=== PATIENT | male | born 1950 | race Caucasian/White ===

== ENCOUNTER 2020-11-05 11:35 | Emergency (ER) | payer OTHER ==
--- OUTSIDE RECORDS SUMMARY | 2020-11-05 11:38 | XMS REPORT | Continuity of Care Document ---
:1950 Author Organization [facility] t Address [address] [place] [address] Care Team Providers Name Role Phone Unavailable Unavailable Unavailable Problems Condition Condition Condition Status Onset Resolution Last Treating Co mments Source Name Details Category Date Date Treatment Clinician Date Acute gout Acute Gout Problem Active 0 [facility] 7-02 da 00:00: Medical 00 Group Osteoarthr Osteoarthr Problem Active [facility] itis of itis of 4-21 da hip Hip 00:00: Medical Group Hypertrigl Hypertrigl Problem Active [facility] yceridemia yceridemia 9-04 da 00:00: Medical 00 Group Gouty Gouty Problem Active [facility] arthropath Arthropath 9-04 da y y 00:00: Medical 00 Group Acute Acute Problem Active [facility] abscess of Abscess of 9-04 da skin Skin 00:00: Medical and/or And/or 00 Group subcutaneo Subcutaneo us tissue us Tissue Cellulitis Cellulitis Problem Active [facility] of foot of Foot 8-28 da 00:00: Medical Group Serum Serum Problem Active [facility] creatinine Creatinine 8-28 da raised Raised 00:00: Medical 00 Group 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 3-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 00:00: Medica l without without 00 Group complicati Complicati on on Mixed Mixed Problem Active [facility] hyperlipid Hyperlipid 3-26 da emia emia 00:00: Medical 00 Group Hypertensi Hypertensi Problem Active [facility] ve ve 3-26 da disorder Disorder 00:00: Medica l 00 Group Coronary Coronary Problem Active [facility] arterioscl Arterioscl 3-26 da erosis erosis 00:00: Medical 00 Group Transient Transient Problem Active [facility] cerebral Cerebral 3 da ischemia Ischemia 00:00: Medica l 00 Group Stented Stented Problem Active [facility] coronary Coronary 05-19 da artery Artery 00:00: Medical 00 Group Allergies, Adverse Reactions, Alerts This patient has no known allergies or adverse reactions. Social History Smoking Status Start Date Stop Date Source Never Smoker [facility] Medications Ordered Filled Start Stop Current Ordering Indication Dosage Frequency Signature Comments Components Source Medication Medication Date Date Medication? Clinician (SIG) Name Name allopurinol allopurinol No allopurino [facility] 300 mg 300 mg l 300 mg da tablet TAKE tablet TAKE tablet Medical 1 TABLET 1 TABLET TAKE 1 Group EVERY DAY EVERY DAY TABLET EVERY DAY clopidogrel clopidogrel No clopidogre [facility] 75 mg 75 mg l 75 mg da tablet TAKE tablet TAKE tablet Medical 1 TABLET 1 TABLET TAKE 1 Group EVERY DAY EVERY DAY TABLET EVERY DAY Depo-Medrol Depo-Medrol No 1mL Depo-Medro [place] 40 mg/mL 40 mg/mL l 40 mg/mL d a suspension suspension suspension Medical for for for Group injection injection injection Take 1 mL Take 1 mL Take 1 mL by by by injection injection injection route. route. route. dexamethaso dexamethaso No 1mL dexamethas [facility] ne sodium ne sodium one sodium da phosphate phosphate phosphate Medical 10 mg/mL 10 mg/mL 10 mg/mL El up injection injection injection solution solution solution Take 1 mL Take 1 mL Take 1 mL by by by injection injection injection route. route. route. enalapril enalapril No enalapril [facility] maleate 10 maleate 10 maleate 10 da mg tablet mg tablet mg tablet Medical TAKE 1 TAKE 1 TAKE 1 Group TABLET TABLET TABLET TWICE DAILY TWICE DAILY TWICE DAILY fenofibrate fenofibrate No fenofibrat [facility] 160 mg 160 mg e 160 mg da tablet TAKE tablet TAKE tablet Medical 1 TABLET 1 TABLET TAKE 1 Group EVERY DAY EVERY DAY TABLET EVERY DAY indomethaci indomethaci No indomethac [facility] n 50 mg n 50 mg in 50 mg da capsule capsule capsule Medica l Take 1 Take 1 Take 1 Group capsule 3 capsule 3 capsule 3 times a day times a day times a by oral by oral day by route. route. oral route. Medrol Medrol No 1dose Q1D Medrol [place] (Ralf) 4 mg (Ralf) 4 mg pk(s) (Ralf) 4 mg da tablets in tablets in tablets in Medical a dose pack a dose pack a dose Group Take 1 dose Take 1 dose pack Take pk every pk every 1 dose pk day by oral day by oral every day route. take route. take by oral exactly as exactly as route. directed in directed in take the packet the packet exactly as for gout for gout directed flare up flare up in the packet for gout flare up meloxicam meloxicam No 1 Q1D meloxicam [facility] 15 mg 15 mg 15 mg da tablet Take tablet Take tablet Medical 1 tablet 1 tablet Take 1 Group every day every day tablet by oral by oral every day route. take route. take by oral daily until daily until route. gout attack gout attack take daily subsides subsides until gout attack subsides metformin metformin No metformin [facility] 500 mg 500 mg 500 mg da tablet tablet tablet Medical Group metformin metformin No metformin [facility] ER 1,000 mg ER 1,000 mg ER 1,000 da 24 hr 24 hr mg 24 hr Medical tablet,exte tablet,exte tablet,ext Group nded nded ended release release release take 2 take 2 take 2 tablets tablets tablets daily daily daily metformin metformin No metformin [facility] ER 500 mg ER 500 mg ER 500 mg da tablet,exte tablet,exte tablet,ext Medical nded nded ended Group release 24 release 24 release 24 hr TAKE 2 hr TAKE 2 hr TAKE 2 TABLETS TABLETS TABLETS EVERY DAY EVERY DAY EVERY DAY metoprolol metoprolol No metoprolol [facility] tartrate 25 tartrate 25 tartrate da mg tablet mg tablet 25 mg Medi dafne TAKE 1 TAKE 1 tablet Group TABLET TABLET TAKE 1 TWICE DAILY TWICE DAILY TABLET TWICE DAILY mupirocin 2 mupirocin 2 No mupirocin [facility] % topical % topical 2 % da ointment ointment topical Medi dafne ointment Group prednisone prednisone No 1 Q1D prednisone [facility] 10 mg 10 mg 10 mg da tablet Take tablet Take tablet Medical 1 tablet 1 tablet Take 1 Group every day every day tablet by oral by oral every day route. take route. take by oral daily for 5 daily for 5 route. days for days for take daily hip pain hip pain for 5 days take with take with for hip meals meals pain take with meals Immunizations Ordered Immunization Filled Immunization Date Status Commen ts Source Name Name influenza, high dose influenza, high dose 2017-11-27 Completed [facility] seasonal seasonal 13:57:00 Medical Group pneumococcal pneumococcal 2014-11-11 Completed [facility] conjugate PCV 13 conjugate PCV 13 00:00:00 Me dical Group pneumococcal pneumococcal 2013-11-16 Completed [facility] polysaccharide PPV23 polysaccharide PPV23 00:00:00 Medical Group Vital Signs Vital Name Observation Time Observation Value Comments Source BP Diastolic 2018-08-17 00:00:00 78 mm[Hg] [facility] Height 2018-08-17 00:00:00 69 [in_i] [facility] BMI (Body Mass 2018-08-17 00:00:00 32.6 kg/m2 [facility] 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 Encounters Start End Encounter Admission Attending Care Care Encounter Source Date/Time Date/Time Type Type Clinicians Facility Department ID 2019-08-26 2019-08-26 [facility] [place] - [id number] [facility] 00:00:00 00:00:00 [place]: [address] [place] [address] , Ph. 2019-06-15 2019-06-15 [facility] [place] - [id number] [facility] 00:00:00 00:00:00 MD [place]: [facility] [address] [place] [address] [place] [address] , Ph. 2018-08-17 2018-08-17 [facility] [place] - [id number] [facility] 00:00:00 00:00:00 MD [place]: [address] [place] [address] , Ph. Results This patient has no known results.
--- NOTE | 2020-11-05 12:54 | RAD REPORT ---
EXAM DESCRIPTION: RAD - Chest Single View - 11/05/2020 12:43 pm CLINICAL HISTORY: Cough;Fever;SOB Chest pain. COMPARISON: No comparisons FINDINGS: Portable technique limits examination quality. Mild bilateral interstitial lung opacities are present likely representing viral infection/bronchitis . The heart is normal in size. No displaced fractures.
[2020-11-05 13:04] LABS: Absolute Lymphocytes (CBC) 0.7 K/uL (0.7-4.9); Basophils % 0.4 % (0-1.3); Hematocrit 39.2 % (39.6-49.0); Lymphocytes % 7.6 % (15.3-44.8); MPV 9.2 fL (7.6-11.3); RBC Red Blood Cell Count 4.63 M/uL (4.33-5.43)
[2020-11-05 13:07] LABS: Protime INR 1.16
[2020-11-05 13:30] LABS: ALT/SGPT 22 U/L (12-78); AST/SGOT 21 U/L (15-37); Albumin 3.2 g/dL (3.4-5.0); Alkaline Phosphatase 61 U/L (45-117); BUN Blood Urea Nitrogen 30 mg/dL (7-18); Bicarbonate 20 mmol/L (21-32); Bilirubin Direct 0.1 mg/dL (0-0.2); Bilirubin Total 0.3 mg/dL (0.2-1.0); Ferritin 179.2 ng/mL (26-388); Glucose Level 138 mg/dL (74-106); Lipase 95 U/L (73-393); Protein, Total 7.3 g/dL (6.4-8.2); Sodium Level 135 mmol/L (136-145); Troponin (Emerg Dept Use Only) < 0.02 ng/mL (0.0-0.045)
[2020-11-05] MEDS ORDERED: ALBUTEROL 2.5 MG/3 ML NEB SOL ONE ×2 (13:30→13:52)
[2020-11-05] MEDS ORDERED: IPRATROPIUM BROM 0.5MG/2.5ML ONE (13:30)
[2020-11-05] MEDS ORDERED: ACETAMINOPHEN 500 MG TAB ONE ×2 (13:33→21:11)
[2020-11-05 13:47] LABS: Blood Morphology Comment NOT SEEN (NOT SEEN); Platelet Estimate ADEQ; White Blood Cell Scan OK (OK)
[2020-11-05 14:54] LABS: SARS-COV-2 RT PCR POSITIVE (NEGATIVE)
[2020-11-05] MEDS ORDERED: NA CHLORIDE 0.9% 250 ML ONE (15:47)
[2020-11-05] MEDS ORDERED: CASIRIVIMAB/IMDEVIMAB 10 ML VIAL ONE (15:47)
--- NOTE | 2020-11-05 16:13 | EDPHYS ---
Physician Documentation [facility] Name: Leandro Donis Age: 70 yrs Sex: Male : 1950 Arrival Date: 11/05/2020 Time: 11:38 Bed 16 Private MD: ED Physician Jakob Hilton HPI: 11/05 12:06 This 70 yrs old Male presents to ER via Ambulatory with complaints of Cough, pm1 Fever. 12:06 The patient or guardian reports cough, Fever, low energy since second Covid vaccine pm1 dosage on 10/26. Onset: The symptoms/episode began/occurred 10 day(s) ago. Severity of symptoms: in the emergency department the symptoms are unchanged. Modifying factors: The symptoms are alleviated by nothing, the symptoms are aggravated by nothing. Associated signs and symptoms: Pertinent positives: fever, Shortness of breath, Pertinent negatives: chest pain, diarrhea, ear ache, sore throat, vomiting. The patient has not experienced similar symptoms in the past. Historical: - Allergies: 11:51 Morphine; vomiting; hb - Immunization history:: Client reports receiving the 2nd dose of the Covid vaccine, Date received: October 26, 2020. - Social history:: Smoking status: Patient denies any tobacco usage or history of. ROS: 12:06 Cardiovascular: Negative for chest pain, palpitations, and edema. pm1 12:06 Abdomen/GI: Negative for abdominal pain, nausea, vomiting, diarrhea, and constipation, Back: Negative for injury and pain, MS/Extremity: Negative for injury and deformity, Skin: Negative for injury, rash, and discoloration, Neuro: Negative for headache, weakness, numbness, tingling, and seizure. 12:06 Constitutional: Positive for fever, malaise, Negative for poor PO intake. 12:06 Respiratory: Positive for cough, shortness of breath, Negative for sputum production. 12:06 All other systems are negative. Exam: 12:06 Constitutional: This is a well developed, well nourished patient who is awake, alert, pm1 and in no acute distress. Head/Face: Normocephalic, atraumatic. 12:06 Skin: Warm, dry with normal turgor. Normal color with no rashes, no lesions, and no evidence of cellulitis. MS/ Extremity: Pulses equal, no cyanosis. Neurovascular intact. Full, normal range of motion. 12:06 ENT: Exam is negative for acute changes, Mouth: no acute changes, Lips: normal, moist, Oral mucosa: normal, pink and intact, moist. 12:06 Cardiovascular: Exam negative for acute changes, Rate: normal, Rhythm: regular, Pulses: no pulse deficits are appreciated, Heart sounds: normal. 12:06 Respiratory: Exam negative for acute changes, respiratory distress, shortness of breath, Breath sounds: are clear throughout. 12:06 Abdomen/GI: Exam negative for acute changes, Inspection: abdomen appears normal, Palpation: abdomen is soft and non-tender, in all quadrants. 12:06 Neuro: Exam negative for acute changes, Orientation: is normal, Mentation: is normal, Motor: is normal, moves all fours. Vital Signs: 11:50 BP 149 / 72; Pulse 90; Resp 24; Temp 97.1(TE); Pulse Ox 97% on R/A; Weight 104.33 kg; hb Height 5 ft. 9 in. (175.26 cm); Pain 3/10; 12:05 BP 149 / 82; Pulse 88; Resp 24; Temp 100.4; Pulse Ox 95% on 2 lpm NC; aj2 13:54 BP 113 / 60; Pulse 92; Resp 24; Temp 99.3; Pulse Ox 95% on 2 lpm NC; aj2 15:04 BP 106 / 61; Pulse 98; Resp 22; Temp 99; Pulse Ox 92% on R/A; aj2 15:09 BP 121 / 71; Pulse 85; Resp 20; Pulse Ox 94% 2 lpm ; aj2 11:50 Body Mass Index 33.96 (104.33 kg, 175.26 cm) hb MDM: 11:47 Patient medically screened. pm1 15:16 Data reviewed: vital signs. Data interpreted: Pulse oximetry: on room air is 94 %. pm1 15:16 Counseling: I had a detailed discussion with the patient and/or guardian regarding: the pm1 historical points, exam findings, and any diagnostic results supporting the discharge/admit diagnosis, lab results, radiology results. 15:16 Special discussion: I discussed with the patient/guardian in detail that at this point pm1 there is no indication for admission to the hospital. It is understood, however, that if the symptoms persist or worsen the patient needs to return immediately for re-evaluation. Currently is not a candidate for admission due to coronavirus. Patient's room air saturation acceptable for discharge. However patient is a candidate for Regeneron and discussed this option with the patient. He would like the administration of Regeneron. 11/05 12:05 Order name: BMP pm11/05 12:05 Order name: Blood Culture Adult (2) pm11/05 12:05 Order name: C-Reactive Protein pm11/05 12:05 Order name: CBC with Diff pm11/05 12:05 Order name: D-Dimer pm11/05 12:05 Order name: Ferritin pm1 11/05 12:05 Order name: LFT's; Complete Time: 13:40 pm1 11/05 12:05 Order name: Lactate; Complete Time: 13:21 pm1 11/05 12:05 Order name: Lipase; Complete Time: 13:40 pm1 11/05 12:05 Order name: PT-INR; Complete Time: 13:19 pm1 11/05 12:05 Order name: Procalcitonin; Complete Time: 13:40 pm1 11/05 12:05 Order name: Ptt, Activated; Complete Time: 13:19 pm1 11/05 12:05 Order name: Strep; Complete Time: 13:40 pm1 11/05 12:05 Order name: Troponin (emerg Dept Use Only); Complete Time: 13:40 pm1 11/05 12:05 Order name: CXR XRAY; Complete Time: 13:11 pm1 11/05 12:06 Order name: Basic Metabolic Panel; Complete Time: 13:40 EDMS 11/05 12:06 Order name: Blood Culture EDMS 11/05 12:06 Order name: C-Reactive Protein; Complete Time: 13:40 EDMS 11/05 12:06 Order name: CBC with Automated Diff; Complete Time: 13:48 EDMS 11/05 12:06 Order name: D-Dimer; Complete Time: 13:19 EDMS 11/05 12:06 Order name: Ferritin; Complete Time: 13:40 EDMS 11/05 13:28 Order name: Throat Culture EDMS 11/05 13:47 Order name: CBC Smear Scan; Complete Time: 13:48 EDMS 11/05 14:55 Order name: COVID-19/FLU A+B; Complete Time: 15:22 EDMS 11/05 12:05 Order name: EKG; Complete Time: 12:06 pm1 11/05 12:05 Order name: Cardiac monitoring; Complete Time: 13:00 pm1 11/05 12:05 Order name: Droplet/Contact Precautions; Complete Time: 13:00 pm1 11/05 12:05 Order name: EKG - Nurse/Tech; Complete Time: 13:00 pm1 11/05 12:05 Order name: IV Start; Complete Time: 13:00 pm1 11/05 12:05 Order name: Labs collected and sent; Complete Time: 13:00 pm1 11/05 12:05 Order name: O2 Per Protocol; Complete Time: 13:00 pm1 11/05 12:05 Order name: O2 Sat Monitoring; Complete Time: 13:01 pm1 11/05 12:05 Order name: Urine Dipstick-Ancillary (obtain specimen) pm1 Administered Medications: 13:15 Drug: Albuterol - atroVENT (ipratropium) (3:1) (2.5 mg - 0.5 mg) 3 ml Route: Nebulizer; aj2 13:15 Drug: Tylenol 1000 mg Route: PO; aj2 16:30 Drug: Benadryl (diphenhydrAMINE) 12.5 mg Route: IVP; Site: left forearm; aj2 17:00 Drug: REGEN-COV Dose Pack 120 mg/mL-120 mg/mL (EUA) 600 mg Route: IV; Rate: calculated aj2 rate; Site: left forearm; Disposition: 19:02 Co-signature as Attending Physician, Jakob Hilton MD I agree with the assessment and rn plan of care. Attestation: The patient's history, exam findings, diagnostics, and a summary of any interventions or procedures was reviewed in detail with Francis Mora NP. Disposition Summary: 11/05/20 16:13 Discharge Ordered Location: Home pm1 Problem: new pm1 Symptoms: have improved pm1 Condition: Stable pm1 Diagnosis - Other coronavirus as the cause of diseases classified elsewhere pm1 Followup: pm1 - With: Emergency Department - When: As needed - Reason: Worsening of condition Followup: pm1 - With: Private Physician - When: 2 - 3 days - Reason: Recheck today's complaints, Continuance of care, Re-evaluation by your physician Discharge Instructions: - Discharge Summary Sheet pm1 - COVID-19 pm1 - COVID-19 Frequently Asked Questions pm1 - 10 Things You Can Do to Manage Your COVID-19 Symptoms at Home - [facility] pm1 - COVID-19: Quarantine vs. Isolation - [facility] pm1 Forms: - Medication Reconciliation Form pm1 - Thank You Letter pm1 - Antibiotic Education pm1 - Prescription Opioid Use pm1 Prescriptions: - Ventolin HFA 90 mcg/actuation Inhalation HFA aerosol inhaler - inhale 2 puff by INHALATION route every 4-6 hours As needed; 1 Inhaler; pm1 Refills: 0, Product Selection Permitted Signatures: Dispatcher [employer] EDMS Jakob Hilton MD MD rn Marinas, Patrick, NP GAMING COMMISSIONER pm1 Mirta Albright RN RN Jaime Carrasco2 Corrections: (The following items were deleted from the chart) 13:16 12:06 Influenza Screen (A \T\ B)+BA.LAB.BRZ ordered. EDMS EDMS 13:16 12:13 CORONAVIRUS+MR.LAB.BRZ ordered. EDMS EDMS
--- NOTE | 2020-11-05 16:13 | ER ---
Nurse's Notes [facility] Name: Leandro Donis Age: 70 yrs Sex: Male : 1950 Arrival Date: 11/05/2020 Time: 11:38 Bed 16 Private MD: Diagnosis: Other coronavirus as the cause of diseases classified elsewhere Presentation: 11/05 11:45 Chief complaint: Chief complaint: Malaise, cough, and intermittent fever since he hb received second COVID vaccine 10/26. TMAX 104. 11:50 Coronavirus screen: Client presents with at least one sign or symptom that may indicate hb coronavirus-19. Standard/surgical mask placed on the client. Provider contacted for isolation considerations. Ebola Screen: No symptoms or risks identified at this time. Initial Sepsis Screen: Does the patient meet any 2 criteria? No. Patient's initial sepsis screen is negative. Does the patient have a suspected source of infection? No. Patient's initial sepsis screen is negative. Risk Assessment: Do you want to hurt yourself or someone else? Patient reports no desire to harm self or others. Onset of symptoms was October 27, 2020. 11:50 Method Of Arrival: Ambulatory hb 11:50 Acuity: DORA 3 hb Historical: - Allergies: 11:51 Morphine; vomiting; hb - Immunization history:: Client reports receiving the 2nd dose of the Covid vaccine, Date received: October 26, 2020. - Social history:: Smoking status: Patient denies any tobacco usage or history of. Screenin:52 Abuse screen: Denies threats or abuse. Denies injuries from another. Nutritional hb screening: No deficits noted. Tuberculosis screening: No symptoms or risk factors identified. Fall Risk None identified. Assessment: 12:05 Pain: Denies pain. aj2 13:57 Reassessment: Patient appears in no apparent distress at this time. Patient is alert, aj2 oriented x 3, equal unlabored respirations, skin warm/dry/pink. Patient denies pain at this time. General: Appears in no apparent distress. comfortable, obese, Behavior is calm, cooperative. 15:04 Reassessment: Patient appears in no apparent distress at this time. Patient is alert, aj2 oriented x 3, equal unlabored respirations, skin warm/dry/pink. 17:07 Reassessment: Patient appears in no apparent distress at this time. Patient is alert, aj2 oriented x 3, equal unlabored respirations, skin warm/dry/pink. Vital Signs: 11:50 BP 149 / 72; Pulse 90; Resp 24; Temp 97.1(TE); Pulse Ox 97% on R/A; Weight 104.33 kg; hb Height 5 ft. 9 in. (175.26 cm); Pain 3/10; 12:05 BP 149 / 82; Pulse 88; Resp 24; Temp 100.4; Pulse Ox 95% on 2 lpm NC; aj2 13:54 BP 113 / 60; Pulse 92; Resp 24; Temp 99.3; Pulse Ox 95% on 2 lpm NC; aj2 15:04 BP 106 / 61; Pulse 98; Resp 22; Temp 99; Pulse Ox 92% on R/A; aj2 15:09 BP 121 / 71; Pulse 85; Resp 20; Pulse Ox 94% 2 lpm ; aj2 11:50 Body Mass Index 33.96 (104.33 kg, 175.26 cm) hb ED Course: 11:38 Patient arrived in ED. rg4 11:41 Francis Mora NP is PHCP. pm1 11:41 Jaokb Hilton MD is Attending Physician. pm1 11:51 Triage completed. hb 11:51 Arm band placed on. hb 11:52 Bed in low position. Call light in reach. hb 12:04 Jaime Crystal is Primary Nurse. aj2 12:05 No apparent distress. aj2 12:05 No provider procedures requiring assistance completed. aj2 12:43 CXR XRAY In Process Unspecified. EDMS 12:59 BMP Sent. aj2 12:59 Blood Culture Adult (2) Sent. aj2 12:59 C-Reactive Protein Sent. aj2 12:59 CBC with Diff Sent. aj2 13:00 D-Dimer Sent. aj2 13:00 Ferritin Sent. aj2 13:01 Lactate Sent. aj2 13:01 Lipase Sent. aj2 13:01 PT-INR Sent. aj2 13:01 Procalcitonin Sent. aj2 13:01 Ptt, Activated Sent. aj2 13:01 Strep Sent. aj2 13:01 Troponin (emerg Dept Use Only) Sent. aj2 13:57 Resting quietly. aj2 13:57 IV is patent, is intact. aj2 15:04 No apparent distress. Resting quietly. aj2 15:04 IV is patent, is intact. aj2 15:09 No apparent distress. Resting quietly. aj2 15:09 IV is patent, is intact. aj2 Administered Medications: 13:15 Drug: Albuterol - atroVENT (ipratropium) (3:1) (2.5 mg - 0.5 mg) 3 ml Route: Nebulizer; aj2 13:15 Drug: Tylenol 1000 mg Route: PO; aj2 16:30 Drug: Benadryl (diphenhydrAMINE) 12.5 mg Route: IVP; Site: left forearm; aj2 17:00 Drug: REGEN-COV Dose Pack 120 mg/mL-120 mg/mL (EUA) 600 mg Route: IV; Rate: calculated [facility] rate; Site: left forearm; Outcome: 16:13 Discharge ordered by MD. pm1 19:00 Patient left the ED. ss Signatures: Dispatcher [employer] EDMS Bonnie Dixon RN RN Francis Mora, SHOPPER MARKETING MANAGER SHOPPER MARKETING MANAGER pm1 Mirta Albright RN RN Ericka Valles rg4 Jaime Crystal aj2 Corrections: (The following items were deleted from the chart) 11:51 11:45 Chief complaint: hb hb 13:16 13:01 Influenza Screen (A \T\ B)+BA.LAB.MIGUELZ drawn and sent. 2 EDMA
[2020-11-05] MEDS ORDERED: DIPHENHYDRAMINE 50 MG/ML VIAL ONE (16:51)
[2020-11-05 19:10] VITALS: TEMP 99
[2020-11-05 19:11] VITALS: BP 121/71; O2SAT 94
== END 2020-11-05 19:00 | disposition home or self-care (01) ==
LOC: ER 11:35
DX: U07.1 COVID-19 (principal); Z88.5 Allergy status to narcotic agent
CPT/HCPCS: 93005; 87040 ×2; 87070; 85025; 80048; 36415; 85610; 85379; 80076; 87081; 83605; 85730; 84484; 82728; 83690; 84145; 0240U; 86140; 71045; 96375; 96374; 99284; J1200; J7050

== ENCOUNTER 2020-11-05 20:25 | Emergency (ER) | payer OTHER ==
--- OUTSIDE RECORDS SUMMARY | 2020-11-05 20:28 | XMS REPORT | Continuity of Care Document ---
:1950 Author Organization [facility] t Address [address] [place] [address] Care Team Providers Name Role Phone Unavailable [...] Start Date Stop Date Source Never Smoker [facility] Medications Ordered Filled Start [...] high dose influenza, high dose 2017-11-27 Completed [facility] seasonal seasonal 13:57:00 Medical Group pneumococcal pneumococcal 2014-11-11 Completed [facility] conjugate PCV 13 conjugate PCV 13 00:00:00 Me dical Group pneumococcal pneumococcal 2013-11-16 Completed [facility] polysaccharide PPV23 polysaccharide PPV23 00:00:00 Medical Group Vital Signs Vital Name Observation Time Observation Value Comments Source BP Diastolic 2018-08-17 00:00:00 78 mm[Hg] [facility] Height 2018-08-17 00:00:00 69 [in_i] [facility] BMI (Body Mass 2018-08-17 00:00:00 32.6 kg/m2 [facility] rn intake Medical Index) Group BP Systolic 2018-08-17 00:00:00 122 mm[Hg] [facility] Body Weight 2018-08-17 00:00:00 3536 [oz_av] [facility] Procedures This patient has no known procedures. Encounters Start End Encounter Admission Attending Care Care Encounter Source Date/Time Date/Time Type Type Clinicians Facility Department ID 2019-08-26 2019-08-26 [facility] [place] - [id number] [facility] 00:00:00 00:00:00 [place]: [address] [place] [address] , Ph. 2019-06-15 2019-06-15 Arian [facility] [place] - [id number] [facility] 00:00:00 00:00:00 MD [place]: [facility] [address] [place] [address] [place] [address] , Ph. 2018-08-17 2018-08-17 [facility] [place] - [id number] [facility] 00:00:00 00:00:00 MD [place]: [address] [place] [address] , Ph. Results This patient has no known results.
--- NOTE | 2020-11-05 21:39 | ER ---
Nurse's Notes [facility] Name: Leandro Donis Age: 70 yrs Sex: Male : 1950 Arrival Date: 11/05/2020 Time: 20:28 Bed 23 Private MD: Diagnosis: Presentation: 11/05 20:37 Chief complaint: Patient states: Pt states he was seen here earlier today for fever, wg SOB, coughing and was diagnoses with COVID. Pt states he is still having difficulty breathing. Pt denies taking anything since he left the ER. Coronavirus screen: cough unrelated to allergies, difficulty breathing, fever, Client presents with at least one sign or symptom that may indicate coronavirus-19. Standard/surgical mask placed on the client. Client reports previous positive COVID test result. Date of collection: November 05, 2020. Ebola Screen: Patient negative for fever greater than or equal to 101.5 degrees Fahrenheit, and additional compatible Ebola Virus Disease symptoms Patient denies exposure to infectious person. Patient denies travel to an Ebola-affected area in the 21 days before illness onset. No symptoms or risks identified at this time. Initial Sepsis Screen: Does the patient meet any 2 criteria? No. Patient's initial sepsis screen is negative. Does the patient have a suspected source of infection? No. Patient's initial sepsis screen is negative. Risk Assessment: Do you want to hurt yourself or someone else? Patient reports no desire to harm self or others. Onset of symptoms was October 26, 2020. Care prior to arrival: None. 20:37 Method Of Arrival: Ambulatory 20:37 Acuity: DORA 4 wg Triage Assessment: 20:42 General: Appears uncomfortable, obese, well groomed, Behavior is calm, cooperative, wg appropriate for age, anxious. Pain: Denies pain. EENT: No deficits noted. Neuro: No deficits noted. Cardiovascular: No deficits noted. Respiratory: Reports shortness of breath cough that is Onset: The symptoms/episode began/occurred several days, the patient has moderate shortness of breath. GI: No deficits noted. : No deficits noted. Derm: No deficits noted. Vital Signs: 20:37 BP 133 / 68; Pulse 120; Resp 26; Temp 101.8; Pulse Ox 96% on R/A; Weight 104.33 kg; wg Height 5 ft. 9 in. (175.26 cm); Pain 0/10; 20:37 Body Mass Index 33.96 (104.33 kg, 175.26 cm) wg ED Course: 20:28 Patient arrived in ED. cf2 20:42 Triage completed. wg 20:42 Arm band placed on left wrist. wg Administered Medications: 20:48 Drug: Tylenol 1000 mg Route: PO; wg Outcome: 21:38 Patient left the ED. wg Signatures: Maday Lemus cf2 Senthil Beaver, RN wg
[2020-11-05 21:45] VITALS: BP 133/68; TEMP 101.8; O2SAT 96
== END 2020-11-05 21:38 | disposition left against medical advice (07) ==
LOC: ER 20:25
DX: Z53.21 Procedure and treatment not carried out due to patient leaving prior to being seen by health care provider (principal)
CPT/HCPCS: 99282

== ENCOUNTER 2020-11-08 15:52 | Inpatient (IN) | payer OTHER ==
--- OUTSIDE RECORDS SUMMARY | 2020-11-08 15:55 | XMS REPORT | Continuity of Care Document ---
:1950 Author Organization [facility] t Address [address] [place] [address] Care Team Providers Name Role Phone Unavailable [...] Start Date Stop Date Source Never Smoker [facility] Medications Ordered Filled Start [...] high dose influenza, high dose 2017-11-27 Completed [facility] seasonal seasonal 13:57:00 [facility] Group pneumococcal pneumococcal 2014-11-11 Completed [facility] conjugate PCV 13 conjugate PCV 13 00:00:00 Me dical Group pneumococcal pneumococcal 2013-11-16 Completed [facility] polysaccharide PPV23 polysaccharide PPV23 00:00:00 Medical Group Vital Signs Vital Name Observation Time Observation Value Comments Source BP Diastolic 2018-08-17 00:00:00 78 [facility]Hg[facility] Height 2018-08-17 00:00:00 69 [in_i] [facility] BMI (Body Mass 2018-08-17 00:00:00 32.6 kg/m2 [facility]) Group BP Systolic 2018-08-17 00:00:00 122 mm[Hg] [facility] Body Weight 2018-08-17 00:00:00 3536 [oz_av] [facility] Procedures This patient has no known procedures. Encounters Start End Encounter Admission Attending Care Care Encounter Source Date/Time Date/Time Type Type Clinicians Facility Department ID 2019-08-26 2019-08-26 Arian MAK [place] - [id number] [facility] 00:00:00 00:00:00 MD [place]: [address] [place] [address] , Ph. 2019-06-15 2019-06-15 Arian MAK [place] - [id number] [facility] 00:00:00 00:00:00 MD [place]: [facility] [address] [place] [address] [place] [address] , Ph. 2018-08-17 2018-08-17 Arian MAK [place] - [id number] [facility] 00:00:00 00:00:00 MD [place]: [address] [place] [address] [place] [address] , Ph. Results This patient has no known results.
[2020-11-08] MEDS ORDERED: NA CHLORIDE 0.9% 500 ML ONE (17:06)
[2020-11-08] MEDS ORDERED: METHYLPREDNISOLONE 125 MG INJ ONE (17:14)
[2020-11-08 17:19] LABS: Basophils % 0.4 % (0-1.3); Hematocrit 37.8 % (39.6-49.0); Lymphocytes % 13.1 % (15.3-44.8); MPV 8.2 fL (7.6-11.3)
[2020-11-08 17:21] LABS: Protime INR 1.11
[2020-11-08] MEDS ORDERED: NA CHLORIDE 0.9% 1,000 ML ONE (17:24)
--- NOTE | 2020-11-08 17:24 | RAD REPORT ---
EXAM DESCRIPTION: RAD - Chest Single View - 11/08/2020 5:12 pm CLINICAL HISTORY: SOB Chest pain. COMPARISON: Chest Single View dated 11/05/2020 FINDINGS: Portable technique limits examination quality. Bilateral pulmonary interstitial lung opacities appear mildly progressive since prior study. This pro bably represents viral infection. The heart is normal in size. Advanced degenerative change left shou lder. IMPRESSION: Mild worsening lung aeration since comparative study.
[2020-11-08 17:46] LABS: ALT/SGPT 36 U/L (12-78); AST/SGOT 42 U/L (15-37); Albumin 2.9 g/dL (3.4-5.0); Alkaline Phosphatase 57 U/L (45-117); BUN Blood Urea Nitrogen 31 mg/dL (7-18); Bicarbonate 20 mmol/L (21-32); Bilirubin Direct < 0.1 mg/dL (0-0.2); Bilirubin Total 0.3 mg/dL (0.2-1.0); Ferritin 278.2 ng/mL (26-388); Glucose Level 118 mg/dL (74-106); Magnesium 1.9 mg/dL (1.8-2.4); NT PRO-BNP 352 pg/mL (<125); Potassium 4.3 mmol/L (3.5-5.1); Protein, Total 7.4 g/dL (6.4-8.2); Sodium Level 139 mmol/L (136-145); Troponin (Emerg Dept Use Only) < 0.02 ng/mL (0.0-0.045)
[2020-11-08] MEDS ORDERED: ASPIRIN 81 MG CHEWABLE TABLET ONE (18:20)
[2020-11-08] MEDS ORDERED: ALBUTEROL INHALER 60 PUFF/8 GM IH ONE (18:21)
--- NOTE | 2020-11-08 20:11 | ER ---
Nurse's Notes [facility] Name: Leandro Donis Age: 70 yrs Sex: Male : 1950 Arrival Date: 11/08/2020 Time: 15:53 Bed 23 Private MD: Diagnosis: Pneumonia due to SARS-associated coronavirus;Hypoxemia Presentation: 11/08 15:57 Chief complaint: Patient states: Second Pfizer shot on 10-26-20, Covid + 10-28-20; antibody jl7 infusion a couple days ago, reports worsening shortness of breath. Coronavirus screen: Vaccine status: Patient reports receiving the 2nd dose of the covid vaccine. Date October 26, 2020 shortness of breath, Client presents with at least one sign or symptom that may indicate coronavirus-19. Standard/surgical mask placed on the client. Provider contacted for isolation considerations. Client reports previous positive COVID test result. Date of collection: October 28, 2020 results are located within the EHR/EMR. Ebola Screen: No symptoms or risks identified at this time. Initial Sepsis Screen: Does the patient meet any 2 criteria? No. Patient's initial sepsis screen is negative. Does the patient have a suspected source of infection? No. Patient's initial sepsis screen is negative. Risk Assessment: Do you want to hurt yourself or someone else? Patient reports no desire to harm self or others. Onset of symptoms is unknown. 15:57 Method Of Arrival: Ambulatory [facility] 15:57 Acuity: DORA 3 jl7 Triage Assessment: 16:01 General: Appears in no apparent distress. uncomfortable, Behavior is calm, cooperative, jl7 appropriate for age. Pain: Denies pain. Respiratory: Reports shortness of breath Onset: The symptoms/episode began/occurred gradually, the patient has moderate shortness of breath. Historical: - Allergies: 16:01 Morphine; vomiting; jl7 - PMHx: 16:01 Hypertensive disorder; Diabetes mellitus; Myocardial infarction; Cerebrovascular jl7 accident; - PSHx: 16:01 Cardiac stents; Tonsillectomy; jl7 - Immunization history:: Client reports receiving the 2nd dose of the Covid vaccine, Date received: October 26, 2020 [employer]. - Social history:: Smoking status: Patient denies any tobacco usage or history of. Screenin:49 Abuse screen: Denies threats or abuse. Denies injuries from another. Nutritional aj2 screening: No deficits noted. Tuberculosis screening: No symptoms or risk factors identified. Fall Risk None identified. Assessment: 17:49 Reassessment: Patient appears in no apparent distress at this time. Patient is alert, aj2 oriented x 3, equal unlabored respirations, skin warm/dry/pink. Cardiovascular: No deficits noted. Rhythm is sinus rhythm. Respiratory: Airway is patent. Vital Signs: 15:57 BP 126 / 70; Pulse 57; Resp 24; Temp 97.9; Pulse Ox 94% ; Weight 104.33 kg; Height 5 jl7 ft. 9 in. (175.26 cm); 17:53 BP 114 / 63; Pulse 60; Resp 18; Temp 97.8; Pulse Ox 98% on R/A; aj2 19:27 BP 148 / 86; Pulse 73; Resp 23; Temp 98.3; Pulse Ox 96% ; wr 21:36 BP 143 / 79; Pulse 79; Resp 20; Pulse Ox 98% ; wr 11/09 02:20 BP 150 / 86; Pulse 72; Resp 19; Temp 98.2; Pulse Ox 91% ; wr 11/08 15:57 Body Mass Index 33.96 (104.33 kg, 175.26 cm) jl7 ED Course: 11/08 15:53 Patient arrived in ED. ds1 16:01 Triage completed. jl7 16:01 Arm band placed on right wrist. jl7 16:05 Mane Price PA is PHCP. cp 16:05 Jakob Hilton MD is Attending Physician. cp 16:16 Jaime Crystal is Primary Nurse. aj2 17:12 Chest Single View In Process Unspecified. EDMS 17:49 No apparent distress. Resting quietly. aj2 17:49 Patient has correct armband on for positive identification. aj2 17:49 No provider procedures requiring assistance completed. Inserted saline lock: 20 gauge aj2 in left forearm, using aseptic technique. 17:53 IV is patent, is intact. aj2 20:09 Qiana Fowler MD is Hospitalizing Provider. cp 23:19 COVID-19 : Document "Date of Symptom Onset" if Symptomatic. Sent. wr Administered Medications: 16:30 Drug: SOLU-Medrol (methylPrednisoLONE) 125 mg Route: IVP; Infused Over: 2 mins; Site: wr left forearm; 17:00 Drug: NS 0.9% 500 ml Route: IV; Rate: per protocol; Site: left forearm; 2 17:54 Drug: Albuterol HFA Inhaler 2 puffs Route: Inhalation; aj2 17:54 Drug: Aspirin Chewable Tablet 324 mg Route: PO; aj2 Outcome: 20:10 Decision to Hospitalize by Provider. cp 11/09 02:36 Condition: stable wr 02:36 Admitted to Med/surg via wheelchair, room 427. wr 02:41 Patient left the ED. wr Signatures: Dispatcher [employer] EDTN Abigail Valencia ds1 Mane Price PA PA Frances Lopez RN RN olaf7 Jaime Crystal aj2 Jinny Pa wr
--- NOTE | 2020-11-08 20:11 | EDPHYS ---
Physician Documentation [facility] Name: Leandro Donis Age: 70 yrs Sex: Male : 1950 Arrival Date: 11/08/2020 Time: 15:53 Bed 23 Private MD: ED Physician Jakob Hilton HPI: 11/08 16:15 This 70 yrs old Male presents to ER via Ambulatory with complaints of cp Shortness Of Breath. 16:15 The patient has shortness of breath with light activity. cp 16:15 Onset: The symptoms/episode began/occurred gradually, and became worse today. cp 16:15 Duration: The symptoms are continuous, and are steadily getting worse. The patient's cp shortness of breath is aggravated by light activity. 16:15 Associated signs and symptoms: Pertinent negatives: chest pain, productive cough, cp diaphoresis, dizziness, fever, vomiting. Patient reports testing positive for COVID-19 on 10-28-2020. Patient was seen in this ED 11-05-2020 and received Regen-COV and discharged to home. Historical: - Allergies: 16:01 Morphine; vomiting; jl7 - PMHx: 16:01 Hypertensive disorder; Diabetes mellitus; Myocardial infarction; Cerebrovascular jl7 accident; - PSHx: 16:01 Cardiac stents; Tonsillectomy; jl7 - Immunization history:: Client reports receiving the 2nd dose of the Covid vaccine, Date received: October 26, 2020 [employer]. - Social history:: Smoking status: Patient denies any tobacco usage or history of. ROS: 16:18 Eyes: Negative for injury, pain, redness, and discharge. cp 16:18 Constitutional: Negative for body aches, chills, fever, poor PO intake. 16:18 Cardiovascular: Negative for chest pain, edema, palpitations. 16:18 Respiratory: Positive for cough, with no reported sputum, shortness of breath, on exertion. Negative for wheezing. 16:18 Abdomen/GI: Negative for abdominal pain, vomiting, diarrhea, constipation. cp 16:18 Back: Negative for radiated pain. 16:18 Neuro: Negative for altered mental status, dizziness, headache, syncope, weakness. 16:18 All other systems are negative. Exam: 16:25 Constitutional: The patient appears in no acute distress, alert, awake, cp non-diaphoretic, non-toxic, well developed, well nourished. 16:25 Head/Face: Normocephalic, atraumatic. cp 16:25 Eyes: Periorbital structures: appear normal, Conjunctiva: normal, no exudate, no injection, Sclera: no appreciated abnormality, Lids and lashes: appear normal, bilaterally. 16:25 ENT: External ear(s): are unremarkable, Nose: is normal, Mouth: Lips: moist, Oral mucosa: pink and intact, moist, Posterior pharynx: Airway: no evidence of obstruction, patent. 16:25 Neck: ROM/movement: is normal, is supple, without pain, no range of motions limitations, no meningismus. 16:25 Chest/axilla: Inspection: normal, Palpation: is normal, no crepitus, no tenderness. 16:25 Cardiovascular: Rate: bradycardic, Rhythm: regular, Edema: is not appreciated, JVD: is not appreciated. 16:25 Respiratory: the patient does not display signs of respiratory distress, Respirations: labored breathing, is not present, intercostal retractions, are absent, shallow respirations, that is mild, Breath sounds: bronchial sounds, that are moderate, are heard diffusely, decreased breath sounds, are not appreciated, wheezing: is not appreciated. 16:25 Abdomen/GI: Inspection: abdomen appears normal, Palpation: abdomen is soft and non-tender, in all quadrants. 16:25 Back: pain, is absent, ROM is normal. 16:25 Skin: cellulitis, is not appreciated, no rash present. 16:25 Neuro: Orientation: to person, place \\T\\ time. Mentation: is normal, Motor: moves all fours, strength is normal, Gait: is steady. 16:52 ECG was reviewed by the Attending Physician. cp Vital Signs: 15:57 BP 126 / 70; Pulse 57; Resp 24; Temp 97.9; Pulse Ox 94% ; Weight 104.33 kg; Height 5 jl7 ft. 9 in. (175.26 cm); 17:53 BP 114 / 63; Pulse 60; Resp 18; Temp 97.8; Pulse Ox 98% on R/A; aj2 19:27 BP 148 / 86; Pulse 73; Resp 23; Temp 98.3; Pulse Ox 96% ; wr 21:36 BP 143 / 79; Pulse 79; Resp 20; Pulse Ox 98% ; wr 11/09 02:20 BP 150 / 86; Pulse 72; Resp 19; Temp 98.2; Pulse Ox 91% ; wr 11/08 15:57 Body Mass Index 33.96 (104.33 kg, 175.26 cm) jl7 MDM: 11/08 16:14 Patient medically screened. cp 17:00 Differential diagnosis: CHF exacerbation, Chronic Obstructive Pulmonary Disease cp pneumonia, pulmonary edema, Pulmonary Embolism Sepsis Unstable Angina. 20:15 Data reviewed: vital signs, nurses notes, lab test result(s), EKG, radiologic studies, cp plain films. 20:15 Data interpreted: Pulse oximetry: on room air when ambulating is 88 %. Interpretation: cp hypoxia. Plan: O2 by NC applied. Test interpretation: by ED physician or midlevel provider: ECG, plain radiologic studies. Counseling: I had a detailed discussion with the patient and/or guardian regarding: the historical points, exam findings, and any diagnostic results supporting the discharge/admit diagnosis, lab results, radiology results. Physician consultation: A Malcolm ADAMES was called at 20:00, was contacted at 20:00, regarding admission, to the telemetry unit. patient's condition. 11/08 17:11 Order name: Basic Metabolic Panel; Complete Time: 17:46 EDMS 11/08 17:47 Interpretation: Normal except: CL 111; CO2 20; GLUC 118; BUN 31; CRE 1.72; GFR 39; CA cp 8.4. 11/08 17:11 Order name: Liver (Hepatic) Function; Complete Time: 17:46 EDMS 11/08 18:24 Interpretation: Normal except: AST 42; ALB 2.9; GLOB 4.5; A/G 0.6. 11/08 17:11 Order name: Troponin (Emerg Dept Use Only); Complete Time: 17:46 EDMS 11/08 16:20 Order name: Chest Single View; Complete Time: 17:35 EDMS 11/08 17:35 Interpretation: Report reviewed. 11/08 17:11 Order name: NT PRO-BNP; Complete Time: 17:46 EDMS 11/08 17:11 Order name: C-Reactive Protein; Complete Time: 17:46 EDMS 11/08 17:47 Interpretation: Abnormal: C-REACTIVE PROT 87.70. 11/08 17:11 Order name: Magnesium; Complete Time: 17:46 EDMS 11/08 17:11 Order name: Ferritin; Complete Time: 17:46 EDMS 15 17:11 Order name: CBC with Automated Diff; Complete Time: 17:24 EDMS 11/08 17:24 Interpretation: Normal except: WBC 7.60; HGB 12.4; HCT 37.8; PLT 253; RDW 15.3; MPV cp 8.2; JAMARI% 75.3; LYM% 13.1. 11/08 17:11 Order name: Protime (+INR); Complete Time: 17:35 EDMS 11/08 17:11 Order name: Urinalysis W/Microscopic EDCT 11/08 18:01 Order name: ABG Arterial Blood Gas; Complete Time: 18:24 EDCT 11/08 22:05 Order name: Glucose, Ancillary Testing EDCT 11/08 22:28 Order name: COVID-19 : Document "Date of Symptom Onset" if Symptomatic. [facility] 11/08 16:16 Order name: EKG; Complete Time: 18:19 cp 11/08 16:16 Order name: Cardiac monitoring; Complete Time: 16:34 cp 11/08 16:16 Order name: EKG - Nurse/Tech; Complete Time: 23:22 cp 15 16:16 Order name: IV Saline Lock; Complete Time: 16:34 cp 15 16:16 Order name: Labs collected and sent; Complete Time: 16:34 cp 15 16:16 Order name: O2 Per Protocol; Complete Time: 16:34 cp 15 16:16 Order name: O2 Sat Monitoring; Complete Time: 16:34 cp 11/08 16:16 Order name: Urine Dipstick-Ancillary (obtain specimen); Complete Time: 16:33 cp 11/08 18:25 Order name: Misc. Order: ambulate patient with pulse ox; Complete Time: 21:03 cp 11/08 21:49 Order name: CONS Physician Consult; Complete Time: 01:28 EDMS EC:52 Rate is 66 beats/min. Rhythm is regular. MN interval is normal. QRS interval is normal. cp QT interval is normal. T waves are Inverted in lead aVR. Interpreted by me. Reviewed by me. Administered Medications: 16:30 Drug: SOLU-Medrol (methylPrednisoLONE) 125 mg Route: IVP; Infused Over: 2 mins; Site: left forearm; 17:00 Drug: NS 0.9% 500 ml Route: IV; Rate: per protocol; Site: left forearm; 17:54 Drug: Albuterol HFA Inhaler 2 puffs Route: Inhalation; 17:54 Drug: Aspirin Chewable Tablet 324 mg Route: PO; aj2 Disposition Summary: 11/08/20 20:10 Hospitalization Ordered Hospitalization Status: Inpatient Admission cp Provider: Qiana Fowler cp Condition: Stable cp Problem: new cp Symptoms: have improved cp Bed/Room Type: Standard cp Location: Telemetry/MedSurg (Inpatient)(11/09/20 01:21) tl1 Room Assignment: 427(11/09/20 01:21) tl1 Diagnosis - Pneumonia due to SARS-associated coronavirus cp - Hypoxemia cp Forms: - Medication Reconciliation Form cp - SBAR form cp Addendum: 11/13/2020 08:27 Co-signature as Attending Physician, Jakob Hilton MD I agree with the assessment and r n plan of care. Attestation: The patient's history, exam findings, diagnostics, and a summary of any interventions or procedures was reviewed in detail with Mane VILLALOBOS. Signatures: Dispatcher [employer] EDJakob Shaikh MD MD rn Lasagna, Tonya, RN RN tl1 Mane Price PA PA cp Leal, Jahala, RN RN jl7 Jaime Crystal aj2 Jinny Pa Corrections: (The following items were deleted from the chart) 11/08 18:34 18:19 Arterial Blood Gas+RC.LAB.BRZ ordered. EDMS EDMS 18:41 18:21 Chest For PE Angio+CT.RAD.BRZ ordered. EDMS EDMS 19:19 18:19 Chest Single View+RAD.RAD.BRZ ordered. EDMS EDMS 20:58 18:19 BASIC METABOLIC PANEL+C.LAB.BRZ ordered. EDMS EDMS 20:58 18:19 CBC+H.LAB.BRZ ordered. EDMS EDMS 20:58 18:19 HEPATIC FUNCTION+C.LAB.BRZ ordered. EDMS EDMS 20:58 18:19 MAGNESIUM+C.LAB.BRZ ordered. EDMS EDMS 20:58 18:19 PROBNP+C.LAB.BRZ ordered. EDMS EDMS 20:58 18:19 TROPONIN (EMERG DEPT USE ONLY)+C.LAB.BRZ ordered. EDMS EDMS 20:58 18:19 FERRITIN+C.LAB.BRZ ordered. EDMS EDMS 20:58 18:19 C-REACTIVE PROTEIN+C.LAB.BRZ ordered. EDMS EDMS 20:58 18:19 UA MICROSCOPIC+U.LAB.BRZ ordered. EDMS EDMS 20:59 18:19 PROTIME (+INR)+COAG.LAB.BRZ ordered. EDMS EDMS 22:24 20:10 Telemetry/MedSurg (Inpatient) cp tl1 22:24 20:10 cp tl1 11/09 01:21 11/08 22:24 BR ER HOLD tl1 tl1 11/09 01:21 11/08 22:24 ERHOLD- tl1 tl1 11/10 01:08 11/08 16:15 Patient reports testing positive for COVID-19 on 10-28-2020. cp 11/10 01:11/08 16:15 Patient reports testing positive for COVID-19 on 10-28-2020. Patient was seen cp in this ED 11-05-2020 and received Regen-COVID and discharged to home. cp
[2020-11-08] MEDS ORDERED: ONDANSETRON 4 MG/2 ML VIAL IV PRN (21:49)
[2020-11-08] MEDS ORDERED: NA CHLORIDE 0.9% 1,000 ML IV SCH (22:00)
[2020-11-08] MEDS ORDERED: ASPIRIN EC 81 MG TAB PO ONE (23:10)
[2020-11-08] MEDS ORDERED: FAMOTIDINE 20 MG/2 ML VIAL IV ONE (23:11)
[2020-11-08] MEDS ORDERED: APIXABAN 5 MG TABLET ONE (23:11)
[2020-11-08] MEDS ORDERED: CEFTRIAXONE 1000 MG/VIAL ONE (23:11)
[2020-11-08] MEDS ORDERED: METHYLPREDNISOLONE 40 MG INJ ONE (23:11)
[2020-11-08] MEDS ORDERED: NA CHLORIDE 0.9% 50 ML ONE (23:12)
[2020-11-08] MEDS: ASPIRIN EC 81 MG TAB PO SCH (23:37)
[2020-11-08] MEDS: APIXABAN 5 MG TABLET PO SCH (23:38)
[2020-11-08] MEDS: FAMOTIDINE 20 MG/2 ML VIAL IV SCH (23:39)
[2020-11-08] MEDS: CEFTRIAXONE/SWI 1gm 1 GM/10 ML SYR IV SCH ×2 (23:44→23:46)
[2020-11-09] MEDS ORDERED: NA CHLORIDE 0.9% 1,000 ML ONE (00:39)
[2020-11-09] MEDS: METHYLPREDNISOLONE 40 MG INJ IV SCH ×3 (01:00→17:55)
[2020-11-09 04:39] VITALS: BMI 33.3
[2020-11-09 05:06] LABS: Absolute Lymphocytes (CBC) 0.6 K/uL (0.7-4.9); Basophils % 0.3 % (0-1.3); Hematocrit 38.3 % (39.6-49.0); Lymphocytes % 10.2 % (15.3-44.8); MPV 8.3 fL (7.6-11.3); RBC Red Blood Cell Count 4.52 M/uL (4.33-5.43)
[2020-11-09 05:20] LABS: Potassium 4.5 mmol/L (3.5-5.1)
[2020-11-09] MEDS ORDERED: D50W 25 GM/50 ML SYRINGE IV PRN (07:29)
[2020-11-09] MEDS ORDERED: GLUCAGON 1 MG/VIAL IM PRN (07:29)
[2020-11-09 07:32] LABS: Platelet Estimate ADEQ
[2020-11-09 07:33] LABS: Anisocytosis 1+; Blood Morphology Comment NOTED (NOT SEEN)
[2020-11-09] MEDS ORDERED: FUROSEMIDE 20 MG/ 2ML VIAL IV ONE (08:30)
[2020-11-09] MEDS: ENALAPRIL 10 MG TAB PO SCH ×2 (08:32→08:33)
[2020-11-09] MEDS: glipiZIDE 5 MG TAB PO SCH (08:33)
[2020-11-09] MEDS: METOPROLOL TAR 25 MG TAB PO SCH ×3 (08:33→21:59)
[2020-11-09] MEDS: APIXABAN 5 MG TABLET PO SCH ×2 (08:33→08:44)
[2020-11-09] MEDS: ASPIRIN EC 81 MG TAB PO SCH (08:34)
[2020-11-09] MEDS: CLOPIDOGREL 75 MG TABLET PO SCH ×2 (08:34→08:53)
[2020-11-09] MEDS: FAMOTIDINE 20 MG/2 ML VIAL IV SCH (08:34)
[2020-11-09] MEDS: INSULIN -REGULAR HUMAN 50 UNIT/0.5 ML ML SQ SCH ×4 (08:36→22:02)
[2020-11-09] MEDS: INSULIN GLARGINE 100 UNITS/ML SQ SCH ×2 (08:36→22:02)
[2020-11-09] MEDS: APIXABAN 2.5 MG TABLET PO SCH ×4 (08:45→22:01)
[2020-11-09] MEDS: PANTOPRAZOLE 40MG TABLET PO SCH (08:53)
[2020-11-09] MEDS: ISOSORBIDE MONO SR 30 MG TAB PO SCH (08:53)
[2020-11-09] MEDS: allopurinoL 300 MG TAB PO SCH (08:54)
[2020-11-09] MEDS ORDERED: AZITHROMYCIN IV 500 MG in NA CHLORIDE 0.9% 250 ML IVPB SCH (09:00)
[2020-11-09] MEDS ORDERED: CEFTRIAXONE 1 GM/NS 50 ML 1 GM/50 ML BAG IV SCH (09:00)
[2020-11-09] MEDS: NA CHLORIDE 0.9% 1,000 ML IV SCH ×2 (09:00→12:44)
[2020-11-09 17:02] LABS: Urine Appearance CLEAR (Clear); Urine Bilirubin NEGATIVE (Negative); Urine Blood NEGATIVE (Negative); Urine Color YELLOW (Yellow); Urine Glucose 3+ (Negative); Urine Protein 1+ (Negative); Urine Specific Gravity 1.025 (1.005-1.030)
[2020-11-09 17:33] LABS: Urine Bacteria <20 /HPF (NONE SEEN); Urine RBC <5 /HPF (NONE SEEN)
[2020-11-09] MEDS ORDERED: INSULIN GLARGINE 100 UNITS/ML SQ SCH (21:00)
[2020-11-09] MEDS: ROSUVASTATIN 10 MG TAB PO SCH (22:10)
[2020-11-10] MEDS: METHYLPREDNISOLONE 40 MG INJ IV SCH ×3 (01:59→16:00)
[2020-11-10] MEDS: NA CHLORIDE 0.9% 1,000 ML IV SCH ×2 (03:09→12:21)
[2020-11-10] MEDS: PANTOPRAZOLE 40MG TABLET PO SCH (06:06)
[2020-11-10 06:28] LABS: Basophils % 0.1 % (0-1.3); Hematocrit 37.5 % (39.6-49.0); Lymphocytes % 5.2 % (15.3-44.8); MPV 8.2 fL (7.6-11.3); RBC Red Blood Cell Count 4.45 M/uL (4.33-5.43)
[2020-11-10 06:45] LABS: Albumin 2.9 g/dL (3.4-5.0); Bilirubin Total 0.3 mg/dL (0.2-1.0); C-Reactive Protein 43.5 mg/L (<3.00); Magnesium 2.2 mg/dL (1.8-2.4); Potassium 4.5 mmol/L (3.5-5.1); Protein, Total 7.4 g/dL (6.4-8.2)
--- NOTE | 2020-11-10 07:07 | RAD REPORT ---
EXAM DESCRIPTION: RAD - Chest Single View - 11/10/2020 4:52 am CLINICAL HISTORY: covidpneumonia COMPARISON: November 09November 05 TECHNIQUE: AP portable chest image was obtained 11/10/2020 4:52 am . FINDINGS: Lung volumes are reduced compared to the prior study and the exam is underpenetrated by fi lm technique. Bilateral pneumonia findings are present similar or slightly worse. The low lung volume s accentuates the lung parenchymal opacification. Mediastinum is distorted by shallow inspiration and patient rotation. Heart and vasculature are indio l. No measurable pleural effusion and no pneumothorax. No acute bony abnormality seen. No acute aorti c findings suspected. IMPRESSION: Low lung volume examination showing bilateral pneumonia pattern similar or slightly wors e than comparison.
--- NOTE | 2020-11-10 07:22 | HP ---
Date of Admission: 11/09/2020 Chief Complaint: Shortness of breath. History Of Present Illness: This is a 70-year-old male patient who was recently diagnosed having COV ID-19 infection, who came to the emergency room last week and was evaluated and released to go home, and during that visit to emergency room, he did receive monoclonal antibody Regeneron. The patient w as doing fine, but started to have shortness of breath. Does not have a pulse oximeter to check his oxygen level at home, so he came into emergency room. After he arrived in the ER, he was noted to vences ve low oxygen saturation around 86% and oxygen replacement therapy was started, and the patient was a dmitted to the hospital. He was started on IV steroid and IV antibiotics. He does have some cough a nd chest congestion and coughs up some mucus at times. Allergies: TO MORPHINE, CAUSING DIZZINESS. Medications: List reviewed. Review of Systems: Respiratory: As mentioned above. All other systems reviewed and negative. Past Medical History: Significant for TIA, type 2 diabetes mellitus, hypertension, hyperlipidemia, c oronary artery disease, gastroesophageal reflux disease, benign prostatic hypertrophy, osteoarthritis at multiple sites, and gout. Past Surgical History: Tonsillectomy, adenoidectomy, coronary artery angioplasty with stent placemen t in 2016, and knee surgery. Family History: Father , had Alzheimer disease. Mother , had ovarian cancer and emphysema. Sister , had diabetes and obesity. Social History: Negative for smoking. Use of alcohol rarely. Immunization History: The patient had his first dose of COVID-19 vaccine on October 05, 2020, second dose on October 26, 2020. Physical Examination: Vital Signs: Temperature 97.6, pulse 73, respiratory rate 18, blood pressure 176/83, and oxygen satu ration 93% on 2 L nasal cannula oxygen. General: Awake, alert, oriented, not in distress. HEENT: Head atraumatic, normocephalic. Conjunctivae nonerythematous. Sclerae white. Mouth, no thr ush or edema noted. Ears/Nose, no mass, lesion, discharge noted. Neck: Supple. No JVD, lymph nodes, bruit, thyromegaly noted. Lungs: Bilateral good equal air entry. Clear to auscultation. No rhonchi. No rales. Heart: Normal heart sounds, no murmur or gallop. Abdomen: Soft, bowel sounds normal. No guarding, rigidity, tenderness, mass, hepatosplenomegaly, dis tention, or bruit noted. Extremities: No leg edema. No calf tenderness. Skin: No rash, ulcer, cellulitis. Lymphatics: No lymph node enlargement in neck, supraclavicular, infraclavicular region. Neuro: No focal neurological deficit. Chest: Unremarkable. External Genitalia: Deferred. Rectal: Deferred. Laboratory Data: White count 7.6, hemoglobin 12.4, and platelets 253. This was yesterday. This mor srinivasan, white count 5.7, hemoglobin 12.5, and platelets 271. Blood gas; pH of 7.43, pCO2 of 31.7, pO2 of 68.4, saturation 93% on room air. Yesterday, sodium 139, potassium 4.3, chloride 111, bicarb 20, BUN 31, creatinine 1.72, glucose 118, ferritin 278, AST 42, ALT 36, alkaline phosphatase 57, and CRP 87.7. This morning, sodium 139, potassium 4.5, chloride 111, bicarb 17, BUN 30, creatinine 1.58, and glucose 329. Chest x-ray shows worsening infiltrate compared to prior chest x-ray from 11/06/2019. Impression: 1.COVID-19 infection. 2.COVID-19 pneumonia. 3.Acute respiratory failure with hypoxia. 4.Volume depletion. 5.Acute kidney injury. 6.Hypertension. 7.Hyperlipidemia. 8.Coronary artery disease. 9.Type 2 diabetes mellitus. 10.Chronic kidney disease, stage 3A. 11.Gastroesophageal reflux disease. 12.Benign prostatic hypertrophy. 13.Osteoarthritis, multiple sites. 14.Gout. Plan-: We will admit the patient to hospital for further evaluation. The patient is appropriate for inpatient and is expected to spend 2 midnights in the hospital. We will continue home medications p er order. Give anticoagulation therapy. IV steroid and IV antibiotics will be given. Start the pat ient on insulin, Lantus as well as sliding scale insulin for diabetes control. Consult Dr. Moreland from Pulmonary Service. Details and plan of treatment discussed with the patient. I will see him to [facility] for a followup. MAGI/MODL Voice ID: [id number]
[2020-11-10] MEDS: INSULIN -REGULAR HUMAN 50 UNIT/0.5 ML ML SQ SCH ×4 (07:30→21:25)
[2020-11-10 08:12] LABS: Anisocytosis 1+; Blood Morphology Comment NOTED (NOT SEEN); Platelet Estimate ADEQ
[2020-11-10] MEDS: ENALAPRIL 10 MG TAB PO SCH ×2 (08:55→21:33)
[2020-11-10] MEDS: allopurinoL 300 MG TAB PO SCH (08:55)
[2020-11-10] MEDS: CLOPIDOGREL 75 MG TABLET PO SCH (08:57)
[2020-11-10] MEDS: ISOSORBIDE MONO SR 30 MG TAB PO SCH (08:57)
[2020-11-10] MEDS: INSULIN GLARGINE 100 UNITS/ML SQ SCH ×2 (08:58→21:25)
[2020-11-10] MEDS: glipiZIDE 5 MG TAB PO SCH (08:58)
[2020-11-10] MEDS: METOPROLOL TAR 25 MG TAB PO SCH ×2 (09:00→21:26)
[2020-11-10] MEDS: AMLODIPINE 5 MG TAB PO SCH ×2 (09:04→21:27)
--- NOTE | 2020-11-10 12:19 | P.CNS ---
Date of Consult: 11/10/20 Reason for Consult: Respiratory failure Chief Complaint: Shortness of breath History of Present Illness: Patient is 70 years of age recently diagnosed with coronavirus infection did receive monoclonal antibody more shortness of breath came hypoxic coughing and it appeared in the hospital Allergies morphine Allergy (Verified 11/08/20 16:20) Itching/Hives/Rash - Past Medical/Surgical History -: Significant for TIA, type 2 diabetes mellitus, hypertension, hyperlipidemia -: Tonsillectomy, adenoidectomy, coronary artery angioplasty with stent placem Review of Systems General: Weakness Respiratory: Shortness of Breath Physical Examination Temp Pulse Resp BP Pulse Ox 97.8 F 48 L 23 H 157/72 H 91 11/10/20 08:00 11/10/20 10:00 11/10/20 08:00 11/10/20 10:00 11/10/20 08:00 General: Alert, Oriented x3, Cooperative - Problems (1) 2019 novel coronavirus-infected pneumonia (NCIP) Current Visit: Yes Status: Acute Plan: Patient is 70 years of age s/p Regeneron therapy admitted with coronavirus pneumonia hypoxemia currently doing well only on 2 L of nasal cannula oxygen and IV fluids renal function is improving plan to set up for home O2 chest x-ray consistent with coronavirus pneumonia white count is normal on admission mildly elevated now I suspect is from the steroids patient will not qualify for Barcitinib as he is not on high flow oxygen
--- NOTE | 2020-11-10 13:05 | PN ---
Date of Progress Note: 11/10/2020 Subjective: Patient was seen this morning for follow up. Lying in bed not in distress on nasal cannula oxygen. Denies any new problems. Objective: Vital Signs: Reviewed. HEENT: Unremarkable. Lungs: Clear to auscultation. Cardiac: Heart sounds normal. Abdomen: Soft, bowel sounds normal. No guarding, rigidity, tenderness, distention. Extremities: No leg edema. Laboratory Data: White count 19, hemoglobin 12.2, platelets 31. Sodium 141, potassium 4.5, chloride 114, bicarb 20, BUN 34, creatinine 1.44, glucose 196. Liver function tests unremarkable. CRP 43.50. Impression: 1. COVID-19 infection. 2. COVID-19 pneumonia. 3. Volume depletion. 4. Chronic kidney disease, stage 3A. 5. Hypertension. 6. Diabetes mellitus. Plan: Patient's blood pressure this morning was 178/81 with pulse rate 45. We will go ahead and reduce the dose of his metoprolol from 25 mg twice a day down to 12.5 mg twice a day and add amlodipine 5 mg twice a day per order. Continue steroid, antibiotic, increase dose of Lantus insulin from 10 units 2 times a day to 15 units 2 times a day. Fingerstick blood sugar readings reviewed. We will see him tomorrow for followup. MAGI/MODL Voice ID: [id number] Report ID: [id number] MTDD
[2020-11-10] MEDS: ROSUVASTATIN 10 MG TAB PO SCH (21:24)
[2020-11-10] MEDS: APIXABAN 2.5 MG TABLET PO SCH (21:27)
[2020-11-11] MEDS: METHYLPREDNISOLONE 40 MG INJ IV SCH ×3 (00:35→17:32)
[2020-11-11] MEDS: NA CHLORIDE 0.9% 1,000 ML IV SCH ×2 (01:00→05:30)
[2020-11-11] MEDS: PANTOPRAZOLE 40MG TABLET PO SCH (05:31)
[2020-11-11] MEDS: INSULIN -REGULAR HUMAN 50 UNIT/0.5 ML ML SQ SCH ×4 (07:30→21:00)
[2020-11-11] MEDS: INSULIN GLARGINE 100 UNITS/ML SQ SCH ×2 (08:00→21:00)
[2020-11-11] MEDS: allopurinoL 300 MG TAB PO SCH (08:31)
[2020-11-11] MEDS: ISOSORBIDE MONO SR 30 MG TAB PO SCH (08:31)
[2020-11-11] MEDS: CLOPIDOGREL 75 MG TABLET PO SCH (08:31)
[2020-11-11] MEDS: glipiZIDE 5 MG TAB PO SCH (08:32)
[2020-11-11] MEDS: ENALAPRIL 10 MG TAB PO SCH ×2 (08:33→22:16)
[2020-11-11] MEDS: APIXABAN 2.5 MG TABLET PO SCH ×2 (08:37→22:03)
[2020-11-11] MEDS: METOPROLOL TAR 25 MG TAB PO SCH ×2 (08:37→21:00)
[2020-11-11] MEDS: AMLODIPINE 5 MG TAB PO SCH ×2 (09:00→21:00)
--- NOTE | 2020-11-11 11:00 | RAD REPORT ---
EXAM DESCRIPTION: RAD - Chest Single View - 11/11/2020 10:55 am CLINICAL HISTORY: covidpneumonia COMPARISON: November 10 TECHNIQUE: AP portable chest image was obtained 11/11/2020 10:55 am . FINDINGS: Low lung volume examination shows bilateral airspace opacification in the lower left lung field and upper right lung field. Findings are similar to slightly worse. The lower lung volume on to day's study exaggerates the lung parenchymal opacification. Heart and vasculature are normal. No measurable pleural effusion and no pneumothorax. No acute bony abnormality seen. No acute aortic findings suspected. IMPRESSION: Moderate severity bilateral COVID-19 pneumonia similar or slightly worse than November 10.
--- NOTE | 2020-11-11 12:15 | PN ---
Date of Progress Note: 11/11/2020 Subjective: The patient was seen this morning for followup. He was sitting in bed, not in any distress. Has required more oxygen overnight. Yesterday, he was on 3-4 L nasal cannula. Today, he is on 7 L nasal cannula oxygen. He is not in any respiratory distress. In the morning, he coughs up some mucus with blood in it, but rest of the day he is okay as he describes. Objective: Vital Signs: Reviewed. HEENT: Unremarkable. Lungs: Bilateral good equal air entry with some rales noted in lower lung wilkerson. Not using any accessory muscles of respiration. Heart: Sounds normal. Abdomen: Soft. Bowel sounds normal. No guarding, rigidity, tenderness, or distention. Extremities: No leg edema. Laboratory Data: There is no new blood work today. Fingerstick blood sugar readings reviewed. Chest x-ray done today shows slight worsening of bilateral moderate opacity with pneumonia. Impression: 1. COVID-19 infection. 2. COVID-19 pneumonia. 3. Acute respiratory failure with hypoxia. 4. Hemoptysis, secondary to #1. 5. Hypertension. Plan: We will go ahead and continue current anticoagulation medication. The patient is on 40 mg every 8 hours. We will increase dose to 80 mg every 8 hours and we will follow up with Dr. Moreland for further management of this problem and I have called him and discussed details with him today. Continue current antihypertensive medication and details and plan of treatment discussed with the patient. MAGI/MODL Voice ID: [id number] Report ID: [id number] JESICA
[2020-11-11] MEDS ORDERED: AZITHROMYCIN IV 500 MG in NA CHLORIDE 0.9% 250 ML IVPB ONE (17:43)
[2020-11-11] MEDS: ROSUVASTATIN 10 MG TAB PO SCH (22:16)
[2020-11-12] MEDS: METHYLPREDNISOLONE 40 MG INJ IV SCH ×3 (01:09→17:06)
[2020-11-12 05:20] LABS: Absolute Lymphocytes (CBC) 0.9 K/uL (0.7-4.9); Basophils % 0.1 % (0-1.3); Hematocrit 40.7 % (39.6-49.0); Lymphocytes % 5.7 % (15.3-44.8); MPV 8.2 fL (7.6-11.3)
[2020-11-12 05:34] LABS: Albumin 2.9 g/dL (3.4-5.0); Bilirubin Total 0.6 mg/dL (0.2-1.0); C-Reactive Protein 9.38 mg/L (<3.00); Magnesium 2.5 mg/dL (1.8-2.4); Potassium 4.4 mmol/L (3.5-5.1); Protein, Total 7.2 g/dL (6.4-8.2)
[2020-11-12] MEDS: PANTOPRAZOLE 40MG TABLET PO SCH (05:57)
[2020-11-12] MEDS ORDERED: MAGNESIUM HYDROXIDE 8% 30 ML PO ONE (07:59)
[2020-11-12] MEDS: INSULIN GLARGINE 100 UNITS/ML SQ SCH ×2 (08:00→09:02)
--- NOTE | 2020-11-12 08:06 | RAD REPORT ---
EXAM DESCRIPTION: [place] Single View11/12/2020 6:24 am CLINICAL HISTORY: Shortness of breath COMPARISON: October FINDINGS: Mild improvement in the left and mild to moderate improvement in the right pulmonary opac ities. Heart is borderline enlarged IMPRESSION: Mild to moderate improvement in the bilateral pulmonary opacities likely pneumonia
[2020-11-12] MEDS: INSULIN -REGULAR HUMAN 50 UNIT/0.5 ML ML SQ SCH ×4 (09:01→21:00)
[2020-11-12] MEDS: CLOPIDOGREL 75 MG TABLET PO SCH (09:02)
[2020-11-12] MEDS: allopurinoL 300 MG TAB PO SCH (09:03)
[2020-11-12] MEDS: METOPROLOL TAR 25 MG TAB PO SCH ×2 (09:03→21:03)
[2020-11-12] MEDS: AMLODIPINE 5 MG TAB PO SCH ×2 (09:03→21:06)
[2020-11-12] MEDS: glipiZIDE 5 MG TAB PO SCH (09:03)
[2020-11-12] MEDS: APIXABAN 2.5 MG TABLET PO SCH ×2 (09:04→21:06)
[2020-11-12] MEDS: levoFLOXacin 500 MG TAB PO SCH (09:04)
[2020-11-12] MEDS: ENALAPRIL 10 MG TAB PO SCH ×2 (09:04→21:06)
[2020-11-12] MEDS: ISOSORBIDE MONO SR 30 MG TAB PO SCH (09:05)
[2020-11-12] MEDS: AZITHROMYCIN IV 250 MG in NA CHLORIDE 0.9% 250 ML IVPB SCH (09:09)
--- NOTE | 2020-11-12 10:07 | PN ---
Date of Progress Note: 11/12/2020 Subjective: The patient was seen this morning for followup. No new complaints or problems reported by the patient. Overall, he reported that he is feeling better today compared to yesterday. Yesterd ay morning, he was on nasal cannula oxygen 7 L/minute this morning, he is down to 6 L/minute. He is having some constipation problem and requesting some medications. Objective: Vital Signs: Reviewed. HEENT: Unremarkable. Lungs: Bilateral good equal air entry. Some rales noted in lungs. Not in any respiratory distress. Heart: Sounds normal. Abdomen: Soft. Bowel sounds normal. No guarding, rigidity, tenderness, or distention. Extremities: No leg edema. Laboratory Data: White count 15.8, hemoglobin 13.2, platelets 450. Sodium 141, potassium 4.4, chlor marge 111, bicarb 21, BUN 38, creatinine 1.40, glucose 235, AST 38, ALT 84, alkaline phosphatase 64. C RP down to 9.38 today. Impression: 1.COVID-19 infection. 2.COVID-19 pneumonia. 3.Hypertension. 4.Anemia, unspecified. 5.Acute respiratory failure with hypoxia. Plan: We will continue current steroid. Yesterday, we did increase the dose of IV Solu-Medrol to 80 mg every 8 hours. We will continue that. We also started him on azithromycin. We will continue th at as well. Continue current oxygen replacement therapy and I did communicate details with Dr. Moreland yesterday and we will continue to follow up with him. MAGI/MODL Voice ID: [id number] Report ID: [id number]
[2020-11-12] MEDS ORDERED: FUROSEMIDE 20 MG/ 2ML VIAL IV ONE (14:36)
[2020-11-12] MEDS: ROSUVASTATIN 10 MG TAB PO SCH (21:03)
[2020-11-13] MEDS: METHYLPREDNISOLONE 40 MG INJ IV SCH ×4 (00:20→17:21)
[2020-11-13] MEDS: PANTOPRAZOLE 40MG TABLET PO SCH (05:43)
[2020-11-13] MEDS: INSULIN -REGULAR HUMAN 50 UNIT/0.5 ML ML SQ SCH ×4 (08:55→20:23)
[2020-11-13] MEDS: CLOPIDOGREL 75 MG TABLET PO SCH (08:57)
[2020-11-13] MEDS: ISOSORBIDE MONO SR 30 MG TAB PO SCH (08:58)
[2020-11-13] MEDS: levoFLOXacin 500 MG TAB PO SCH (08:58)
[2020-11-13] MEDS: METOPROLOL TAR 25 MG TAB PO SCH ×2 (08:59→20:28)
[2020-11-13] MEDS: glipiZIDE 5 MG TAB PO SCH (08:59)
[2020-11-13] MEDS: allopurinoL 300 MG TAB PO SCH (08:59)
[2020-11-13] MEDS: AMLODIPINE 5 MG TAB PO SCH ×2 (09:00→20:20)
[2020-11-13] MEDS: APIXABAN 2.5 MG TABLET PO SCH ×2 (09:00→20:21)
[2020-11-13] MEDS: INSULIN GLARGINE 100 UNITS/ML SQ SCH ×2 (09:01→20:22)
[2020-11-13] MEDS: AZITHROMYCIN IV 250 MG in NA CHLORIDE 0.9% 250 ML IVPB SCH (09:02)
[2020-11-13] MEDS: ENALAPRIL 10 MG TAB PO SCH ×2 (09:04→20:21)
--- NOTE | 2020-11-13 13:07 | P.PN ---
Subjective Date of Service: 11/13/20 Chief Complaint: COVID penumonia Subjective: Improving (Improving feeling better) Review of Systems Respiratory: Shortness of Breath Physical Examination - Vital Signs Temperature: 98.2 F Blood Pressure: 155/83 Pulse: 63 Respirations: 22 Pulse Ox (%): 93 - Physical Exam General: Alert, Oriented x3, Cooperative Assessment & Plan - Problems (Diagnosis) (1) 2019 novel coronavirus-infected pneumonia (NCIP) Current Visit: Yes Status: Acute Plan: Doign better on 6 l NC .recheck labs today/ poss DC 1-2 days poss repeat lasix pending labs
[2020-11-13 14:43] LABS: Potassium 4.9 mmol/L (3.5-5.1)
[2020-11-13] MEDS: ROSUVASTATIN 10 MG TAB PO SCH (20:20)
[2020-11-14] MEDS: METHYLPREDNISOLONE 40 MG INJ IV SCH ×3 (01:34→16:26)
[2020-11-14 04:00] LABS: Absolute Lymphocytes (CBC) 0.6 K/uL (0.7-4.9); Basophils % 0.2 % (0-1.3); Hematocrit 39.8 % (39.6-49.0); Lymphocytes % 4.1 % (15.3-44.8); MPV 7.8 fL (7.6-11.3); RBC Red Blood Cell Count 4.71 M/uL (4.33-5.43)
[2020-11-14 04:18] LABS: Albumin 2.8 g/dL (3.4-5.0); Bilirubin Total 0.5 mg/dL (0.2-1.0); C-Reactive Protein 3.66 mg/L (<3.00); Magnesium 2.6 mg/dL (1.8-2.4); Potassium 5.4 mmol/L (3.5-5.1); Protein, Total 6.4 g/dL (6.4-8.2)
[2020-11-14 05:00] LABS: Blood Morphology Comment NOT SEEN (NOT SEEN); Platelet Estimate INCR
[2020-11-14] MEDS: PANTOPRAZOLE 40MG TABLET PO SCH (06:37)
[2020-11-14] MEDS ORDERED: SOD POLYSTYREN SUL 15 GM/60 ML UCUP PO ONE (06:49)
--- NOTE | 2020-11-14 07:51 | RAD REPORT ---
EXAM DESCRIPTION: [place] Single View11/14/2020 6:23 am CLINICAL HISTORY: Chest pain COMPARISON: November 12, 2020 FINDINGS: Mild improvement in bilateral pulmonary opacities. The heart is normal size IMPRESSION: Mild improvement in the bilateral pneumonia
[2020-11-14] MEDS: INSULIN -REGULAR HUMAN 50 UNIT/0.5 ML ML SQ SCH ×4 (08:03→20:57)
[2020-11-14] MEDS: INSULIN GLARGINE 100 UNITS/ML SQ SCH ×2 (08:04→20:56)
[2020-11-14] MEDS: AMLODIPINE 5 MG TAB PO SCH ×2 (08:04→20:56)
[2020-11-14] MEDS: ENALAPRIL 10 MG TAB PO SCH ×2 (08:05→20:55)
[2020-11-14] MEDS: levoFLOXacin 500 MG TAB PO SCH (08:05)
[2020-11-14] MEDS: ISOSORBIDE MONO SR 30 MG TAB PO SCH (08:05)
[2020-11-14] MEDS: allopurinoL 300 MG TAB PO SCH (08:05)
[2020-11-14] MEDS: AZITHROMYCIN IV 250 MG in NA CHLORIDE 0.9% 250 ML IVPB SCH (08:06)
[2020-11-14] MEDS: glipiZIDE 5 MG TAB PO SCH (08:06)
[2020-11-14] MEDS: APIXABAN 2.5 MG TABLET PO SCH ×2 (08:06→20:56)
[2020-11-14] MEDS: METOPROLOL TAR 25 MG TAB PO SCH ×2 (08:06→20:55)
[2020-11-14] MEDS: CLOPIDOGREL 75 MG TABLET PO SCH (08:06)
[2020-11-14] MEDS: ROSUVASTATIN 10 MG TAB PO SCH (20:55)
[2020-11-15] MEDS: METHYLPREDNISOLONE 40 MG INJ IV SCH ×3 (00:57→16:18)
[2020-11-15 04:08] LABS: BUN Blood Urea Nitrogen 39 mg/dL (7-18); Bicarbonate 27 mmol/L (21-32); Glucose Level 203 mg/dL (74-106); Magnesium 2.7 mg/dL (1.8-2.4); Potassium 4.6 mmol/L (3.5-5.1); Sodium Level 145 mmol/L (136-145)
[2020-11-15 04:35] LABS: C-Reactive Protein < 2.90 mg/L (<3.00)
[2020-11-15] MEDS: PANTOPRAZOLE 40MG TABLET PO SCH (06:04)
[2020-11-15] MEDS: INSULIN -REGULAR HUMAN 50 UNIT/0.5 ML ML SQ SCH ×3 (07:30→16:17)
--- NOTE | 2020-11-15 08:37 | PN ---
Date of Progress Note: 11/13/2020 Subjective: The patient was seen this morning for followup. No new complaints or problems reported by him. He is overall feeling better. Objective: Vital Signs: Reviewed. HEENT: Unremarkable. Lungs: Clear to auscultation. Heart: Sounds normal. Abdomen: Soft. Bowel sounds normal. No guarding, rigidity, tenderness, or distention. Extremities: No leg edema. Impression: 1.COVID-19 infection. 2.COVID-19 pneumonia. 3.Acute respiratory failure with hypoxia. 4.Hypertension. Plan: We will continue current medication. Continue current oxygen replacement therapy and current steroid. I will see him tomorrow for followup, possible discharge to go home in the next couple of d ays depending on his condition. We will continue to reduce his oxygen replacement depending on his o xygen saturation level and details and plan of treatment discussed with the patient. We will repeat blood work tomorrow morning. MAGI/MODL Voice ID: [id number] Report ID: [id number]
[2020-11-15] MEDS: ENALAPRIL 10 MG TAB PO SCH (10:04)
[2020-11-15] MEDS: METOPROLOL TAR 25 MG TAB PO SCH (10:05)
[2020-11-15] MEDS: glipiZIDE 5 MG TAB PO SCH (10:05)
[2020-11-15] MEDS: ISOSORBIDE MONO SR 30 MG TAB PO SCH (10:06)
[2020-11-15] MEDS: levoFLOXacin 500 MG TAB PO SCH (10:06)
[2020-11-15] MEDS: APIXABAN 2.5 MG TABLET PO SCH (10:06)
[2020-11-15] MEDS: AMLODIPINE 5 MG TAB PO SCH (10:06)
[2020-11-15] MEDS: allopurinoL 300 MG TAB PO SCH (10:06)
[2020-11-15] MEDS: AZITHROMYCIN IV 250 MG in NA CHLORIDE 0.9% 250 ML IVPB SCH (10:07)
[2020-11-15] MEDS: CLOPIDOGREL 75 MG TABLET PO SCH (10:08)
[2020-11-15] MEDS: INSULIN GLARGINE 100 UNITS/ML SQ SCH (10:08)
--- NOTE | 2020-11-15 10:22 | PN ---
Date of Progress Note: 11/14/2020 Subjective: The patient was seen this morning for followup. No new complaints or problems reported by the patient. Lying in bed, not in any distress. Objective: Vital Signs: Reviewed. He is on 4 L nasal cannula oxygen and overall feels better. HEENT: Unremarkable. Lungs: Clear to auscultation. Heart: Sounds normal. Abdomen: Soft. Bowel sounds normal. No guarding, rigidity, tenderness, or distention. Extremities: No leg edema. Impression: 1.COVID-19 infection. 2.COVID-19 pneumonia. 3.Acute respiratory failure with hypoxia. 4.Hypertension. Plan: We will continue current medications. Labs and chest x-ray results reviewed. Plan is to poss ibly discharge him to go home tomorrow depending on his condition and we will make arrangements for h ome oxygen. I will see him tomorrow for followup. MAGI/MODL Voice ID: [id number] Report ID: [id number]
[2020-11-15 18:07] VITALS: BP 126/62; TEMP 97.8
[2020-11-15 18:08] VITALS: O2SAT 95
--- NOTE | 2020-11-16 06:59 | DS ---
Date of Discharge: 11/15/2020 Disposition: Discharged to go home. Physical Examination: HEENT: Unremarkable. Lungs: Clear to auscultation. Heart: Sounds normal. Abdomen: Soft. Bowel sounds normal. No guarding, rigidity, tenderness, or distention. Extremities: No leg edema. Laboratory Data: Upon admission, white count 7.6, hemoglobin 12.4, platelets 253. Last CBC from yes terday; white count 14.1, hemoglobin 13, platelets 470. Highest WBC count was 19 on 11/10/2020. Las t chemistry from today; sodium 145, potassium 4.6, chloride 111, bicarb 27, BUN 39, creatinine 1.21, glucose 203. CRP less than 2.9 today. His highest CRP level was when he first came into the [facility] and it was 87.70 on 11/08/2020. Discharge Medications And Instructions: 1.Continue all prior home medications. 2.Follow up at my office via tele visit this weekend or next week and the patient to contact my offi ce to schedule this appointment. 3.Use oxygen per nasal cannula at 3 L/minute all the time. 4.Check oxygen level every 1-2 hours and documented and discuss this readings with me at the time of appointment. 5.Avoid any exertion. 6.Walk for 5 minutes every hour. 7.Take following new medications;. a.Eliquis 2.5 mg 2 times a day for 1 month. b.Levaquin 500 mg daily for 1 week. c.Prednisone 10 mg take 2 tablets by mouth 2 times a day for 4 days, then 2 tablets daily for 4 days , then 1 tablet daily for 4 days, then 1/2 tablet daily for 4 days, then stop; take with food. d.Famotidine 20 mg take 1 tablet by mouth 2 times a day for 1 month. Hospital Course: This is a 70-year-old pleasant male patient, who was admitted to the hospital with shortness of breath. Please see dictated H and P for more information. After the patient was kellen xiao in the emergency room, he was admitted to the hospital with COVID-19 infection and COVID-19 pneum onia and acute respiratory failure with hypoxia. The patient required supplemental oxygen use throug hout this hospital stay. He did not require any ventilator support. He was started on IV steroid an d IV steroid dose was increased a few days ago because of his oxygen requirement went up to 7 L/minut e nasal cannula oxygen. After that, his oxygenation started to get better and we were able to reduce his oxygen delivery. Now, he is on 3 L nasal cannula oxygen, maintaining adequate oxygenation. Ove rall, he feels a lot better. Denies any complaints and arrangements were completed for him to get ho me oxygen and today he was discharged to go home in stable condition with above-mentioned medications and instructions. The patient was started on empiric antibiotic when his oxygen requirement went up to 7 L/minute. Final Diagnoses: 1.COVID-19 infection. 2.COVID-19 pneumonia. 3.Acute respiratory failure with hypoxia. 4.Anemia, unspecified. 5.Volume depletion. 6.Acute kidney injury. 7.Hypertension. 8.Hyperlipidemia. 9.Coronary artery disease. 10.Type 2 diabetes mellitus. 11.Gastroesophageal reflux disease. 12.Benign prostatic hypertrophy. 13.Osteoarthritis, multiple sites. 14.Gout. 15.Chronic kidney disease, stage 3A. MAGI/MODL Voice ID: [id number] Report ID: [id number]
== END 2020-11-15 17:42 | disposition home or self-care (01) | DRG 177 ==
LOC: ER 15:52 → ERHOLD 21:46 → 4TH 11-09 02:28
PROVIDERS: ADMIT Internal Medicine; ATTEND Internal Medicine
DX: U07.1 COVID-19 (principal); J12.82 Pneumonia due to coronavirus disease 2019; J96.01 Acute respiratory failure with hypoxia; N17.9 Acute kidney failure, unspecified; R04.2 Hemoptysis; E86.9 Volume depletion, unspecified; I25.10 Atherosclerotic heart disease of native coronary artery without angina pectoris; E78.5 Hyperlipidemia, unspecified; K21.9 Gastro-esophageal reflux disease without esophagitis; N40.0 Benign prostatic hyperplasia without lower urinary tract symptoms; M19.90 Unspecified osteoarthritis, unspecified site; M10.9 Gout, unspecified; I12.9 Hypertensive chronic kidney disease with stage 1 through stage 4 chronic kidney disease, or unspecified chronic kidney disease; E11.22 Type 2 diabetes mellitus with diabetic chronic kidney disease; N18.31 Chronic kidney disease, stage 3a; D64.9 Anemia, unspecified; Z95.5 Presence of coronary angioplasty implant and graft; Z86.73 Personal history of transient ischemic attack (TIA), and cerebral infarction without residual deficits
CPT/HCPCS: 36415; 71045; 80048; 80053; 80061; 80076; 81001; 82728; 82805; 82947; 83735; 83880; 84484; 85025; 85610; 86140; 93005; 96374; 99285; J0456; J0696; J1815; J1940; J2405; J2920; J2930; J7030; J7040; J7050